=== PATIENT | male | born 1940 | race Caucasian/White ===

== ENCOUNTER → 2024-03-01 09:41 | Outpatient (REF) | payer MEDICARE, SELFPAY ==
[2024-03-01 12:23] LABS: % Basophils 0.5 % (0-2); % Eosinophils 3.4 % (0-6); % Immature Granulocytes 0.3 % (0-0.5); % Lymphocytes 24.5 % (20.5-51.1); % Monocytes 9.9 % (1.7-9.3); % Neutrophils 61.4 % (42.2-75.2); Absolute Eosinophils 0.2 10^3/uL (0-0.7); Absolute Lymphocytes 1.4 10^3/uL (1.2-3.4); Absolute Monocytes 0.6 10^3/uL (0.1-0.6); Absolute Neutrophils 3.6 10^3/uL (1.4-6.5); Hematocrit 43.4 % (39.0-52.0); Hemoglobin 14.7 g/dL (13.0-18.0); Mean Corp Hgb Conc. 33.9 g/dL (33.0-37.0); Mean Corpuscular Hgb 33.6 pg (27.0-31.0); Mean Corpuscular Volume 99.1 fL (80.0-94.0); Mean Platelet Volume 10.4 fL (7.4-10.4); Nucleated Red Blood Cells % 0 % (-); Platelet Count 221 10^3/uL (130-400); Red Blood Cell Count 4.38 10^6/uL (4.70-6.10); Red Cell Dist. Width 13.7 % (11.5-14.5); White Blood Cell Count 5.9 10^3/uL (4.8-10.8)
[2024-03-01 12:39] LABS: ALT (SGPT) 14 U/L (0-50); AST (SGOT) 24 U/L (17-59); Albumin 4.2 g/dl (3.5-5.0); Alkaline Phosphatase 82 U/L (38-126); Blood Urea Nitrogen 17 mg/dl (9-20); Calcium 9.7 mg/dl (8.4-10.2); Carbon Dioxide 27 mmol/L (22-30); Chloride 104 mmol/L (98-107); Glucose 127 mg/dl (70-99); HDL Cholesterol 77 mg/dl; LDL Cholesterol, Calculated 41 mg/dl; Potassium 4.3 mmol/L (3.5-5.1); Sodium 138 mmol/L (135-145); Total Bilirubin 0.8 mg/dl (0.2-1.3); Total Cholesterol 129 mg/dl (50-199); Triglyceride 58 mg/dl (10-149); Very Low Density Lipoprotein 11 mg/dl (0-30); eGFR > 60.00
[2024-03-01 13:09] LABS: PSA, Total - Screen 0.51 ng/ml (0.0-4.0)
[2024-03-01 13:18] LABS: Microalbumin, Random Urine 0.9 mg/dl (0.6-1.7); Microalbumin/creatinine Ratio 9.3 mg/g
[2024-03-01 14:56] LABS: Glycohemoglobin (HgbA1c) 7.1 % (4.0-5.6)
== END ==
LOC: HWLAB 09:41
PROVIDERS: ATTENDING PHYSICIAN Physician Assistant Medical
DX: Z12.5 Encounter for screening for malignant neoplasm of prostate (principal); K21.9 Gastro-esophageal reflux disease without esophagitis; E78.5 Hyperlipidemia, unspecified; E11.9 Type 2 diabetes mellitus without complications; I25.10 Atherosclerotic heart disease of native coronary artery without angina pectoris; I10 Essential (primary) hypertension
CPT/HCPCS: 36415; 80053; 80061; 82043; 82570; 83036; 85025; G0103

== ENCOUNTER → 2024-05-21 09:10 | Outpatient (REF) | payer MEDICARE, SELFPAY ==
[2024-05-21 12:26] LABS: Hematocrit 42.8 % (39.0-52.0); Hemoglobin 14.6 g/dL (13.0-18.0); Mean Corp Hgb Conc. 34.1 g/dL (33.0-37.0); Mean Corpuscular Hgb 33.4 pg (27.0-31.0); Mean Corpuscular Volume 97.9 fL (80.0-94.0); Mean Platelet Volume 10.7 fL (7.4-10.4); Platelet Count 234 10^3/uL (130-400); Red Blood Cell Count 4.37 10^6/uL (4.70-6.10); Red Cell Dist. Width 13.9 % (11.5-14.5); White Blood Cell Count 6.3 10^3/uL (4.8-10.8)
[2024-05-21 12:34] LABS: Blood Urea Nitrogen 22 mg/dl (9-20); Calcium 9.8 mg/dl (8.4-10.2); Carbon Dioxide 29 mmol/L (22-30); Chloride 103 mmol/L (98-107); Glucose 116 mg/dl (70-99); Potassium 4.6 mmol/L (3.5-5.1); Sodium 141 mmol/L (135-145); eGFR > 60.00
[2024-05-21 13:05] LABS: Glycohemoglobin (HgbA1c) 6.5 % (4.0-5.6)
[2024-05-21 13:23] LABS: Vitamin B12 497 pg/ml (239-931)
== END ==
LOC: HWLAB 09:10
PROVIDERS: ATTENDING PHYSICIAN Family Medicine; FAMILY PHYSICIAN Internal Medicine Cardiovascular Disease
DX: E11.59 Type 2 diabetes mellitus with other circulatory complications (principal); R71.8 Other abnormality of red blood cells
CPT/HCPCS: 36415; 80048; 82607; 83036; 85027

== ENCOUNTER → 2024-06-21 16:23 | Outpatient (REF) | payer MEDICARE, SELFPAY | LOC: RAD 16:23 | PROVIDERS: ATTENDING PHYSICIAN Family Medicine | DX: K40.90 Unilateral inguinal hernia, without obstruction or gangrene, not specified as recurrent (principal) | CPT/HCPCS: 76882 ==

== ENCOUNTER 2024-08-01 06:20 | Day surgery (SDC) | payer MEDICARE, SELFPAY ==
[2024-08-01 08:24] LABS: Glucose - Point of Care 126 mg/dl (70-99)
== END 2024-08-01 09:50 | disposition home or self-care (01) ==
LOC: GI 06:20
PROVIDERS: ATTENDING PHYSICIAN Internal Medicine Gastroenterology
DX: Z12.11 Encounter for screening for malignant neoplasm of colon (principal); R19.5 Other fecal abnormalities; K64.8 Other hemorrhoids; K57.30 Diverticulosis of large intestine without perforation or abscess without bleeding; D12.3 Benign neoplasm of transverse colon; D12.4 Benign neoplasm of descending colon; D12.5 Benign neoplasm of sigmoid colon; K62.5 Hemorrhage of anus and rectum
CPT/HCPCS: 45385; 45380; 88305; 82962

== ENCOUNTER → 2025-01-10 09:16 | Outpatient (REF) | payer MEDICARE, SELFPAY ==
[2025-01-10 13:02] LABS: % Basophils 0.7 % (0-2); % Eosinophils 3.6 % (0-6); % Immature Granulocytes 0.3 % (0-0.5); % Lymphocytes 19.7 % (20.5-51.1); % Monocytes 9.4 % (1.7-9.3); % Neutrophils 66.3 % (42.2-75.2); Absolute Basophils 0.1 10^3/uL (0-0.2); Absolute Eosinophils 0.3 10^3/uL (0-0.7); Absolute Lymphocytes 1.4 10^3/uL (1.2-3.4); Absolute Monocytes 0.7 10^3/uL (0.1-0.6); Absolute Neutrophils 4.8 10^3/uL (1.4-6.5); Hematocrit 43.2 % (39.0-52.0); Hemoglobin 14.7 g/dL (13.0-18.0); Mean Corpuscular Hgb 33.6 pg (27.0-31.0); Mean Corpuscular Volume 98.9 fL (80.0-94.0); Mean Platelet Volume 10.6 fL (7.4-10.4); Nucleated Red Blood Cells % 0 % (-); Platelet Count 240 10^3/uL (130-400); Red Blood Cell Count 4.37 10^6/uL (4.70-6.10); Red Cell Dist. Width 13.8 % (11.5-14.5); White Blood Cell Count 7.2 10^3/uL (4.8-10.8)
[2025-01-10 13:30] LABS: Glycohemoglobin (HgbA1c) 6.8 % (4.0-5.6)
[2025-01-10 13:32] LABS: ALT (SGPT) 18 U/L (0-50); AST (SGOT) 23 U/L (17-59); Albumin 4.6 g/dl (3.5-5.0); Alkaline Phosphatase 82 U/L (38-126); Blood Urea Nitrogen 21 mg/dl (9-20); Calcium 9.8 mg/dl (8.4-10.2); Carbon Dioxide 28 mmol/L (22-30); Chloride 103 mmol/L (98-107); Glucose 127 mg/dl (70-99); Potassium 4.4 mmol/L (3.5-5.1); Sodium 139 mmol/L (135-145); Total Cholesterol 127 mg/dl (50-199); Total Protein 7.3 g/dl (6.3-8.2); Triglyceride 49 mg/dl (10-149); Very Low Density Lipoprotein 9 mg/dl (0-30); eGFR > 60.00
[2025-01-10 13:43] LABS: HDL Cholesterol 72 mg/dl; LDL Cholesterol, Calculated 46 mg/dl
[2025-01-10 14:18] LABS: Vitamin B12 437 pg/ml (239-931)
== END ==
LOC: HWLAB 09:16
PROVIDERS: ATTENDING PHYSICIAN Family Medicine
DX: E11.59 Type 2 diabetes mellitus with other circulatory complications (principal); E78.5 Hyperlipidemia, unspecified; E53.8 Deficiency of other specified B group vitamins
CPT/HCPCS: 36415; 80053; 80061; 82607; 83036; 85025

== ENCOUNTER → 2025-01-28 10:37 | Outpatient (REF) | payer MEDICARE, SELFPAY ==
[2025-01-28 13:57] LABS: Urine Albumin Negative (Neg - Trace); Urine Bilirubin Negative (Negative); Urine Character Clear (Clear); Urine Color Yellow; Urine Glucose 4+ (Negative); Urine Ketone Negative (Negative); Urine Leukocyte Negative (Negative); Urine Nitrite Negative (Negative); Urine Occult Blood Negative (Negative); Urine Urobilinogen Negative (Neg - 1+)
[2025-01-28 13:58] LABS: PSA, Total - Screen 0.69 ng/ml (0.0-4.0)
[2025-01-28 15:44] LABS: Microalbumin/creatinine Ratio 11.7 mg/g
== END ==
LOC: HWLAB 10:37
PROVIDERS: ATTENDING PHYSICIAN Family Medicine
DX: E11.59 Type 2 diabetes mellitus with other circulatory complications (principal); Z12.5 Encounter for screening for malignant neoplasm of prostate
CPT/HCPCS: 36415; 81003; 82043; 82570; G0103

== ENCOUNTER → 2025-03-31 09:04 | Outpatient (REF) | payer MEDICARE, SELFPAY ==
[2025-03-31 13:24] LABS: HDL Cholesterol 67 mg/dl; LDL Cholesterol, Calculated 61 mg/dl; Total Cholesterol 143 mg/dl (50-199); Triglyceride 79 mg/dl (10-149); Very Low Density Lipoprotein 15 mg/dl (0-30)
== END ==
LOC: HWLAB 09:04
PROVIDERS: ATTENDING PHYSICIAN Internal Medicine Cardiovascular Disease; FAMILY PHYSICIAN Family Medicine
DX: E78.2 Mixed hyperlipidemia (principal)
CPT/HCPCS: 36415; 80061

== ENCOUNTER → 2025-08-12 10:08 | Outpatient (REF) | payer MEDICARE, SELFPAY ==
[2025-08-12 12:55] LABS: ALT (SGPT) 15 U/L (0-50); AST (SGOT) 20 U/L (17-59); Albumin 4.4 g/dl (3.5-5.0); Alkaline Phosphatase 71 U/L (38-126); Blood Urea Nitrogen 18 mg/dl (9-20); Calcium 9.5 mg/dl (8.4-10.2); Carbon Dioxide 28 mmol/L (22-30); Chloride 106 mmol/L (98-107); Glucose 116 mg/dl (70-99); HDL Cholesterol 74 mg/dl; LDL Cholesterol, Calculated 46 mg/dl; Potassium 4.5 mmol/L (3.5-5.1); Sodium 140 mmol/L (135-145); Total Protein 7.2 g/dl (6.3-8.2); Very Low Density Lipoprotein 10 mg/dl (0-30); eGFR > 60.00
[2025-08-12 12:57] LABS: Glycohemoglobin (HgbA1c) 6.7 % (4.0-5.6)
== END ==
LOC: HWLAB 10:08
PROVIDERS: ATTENDING PHYSICIAN Family Medicine
DX: E11.59 Type 2 diabetes mellitus with other circulatory complications (principal); E78.5 Hyperlipidemia, unspecified
CPT/HCPCS: 36415; 80053; 80061; 83036